=== PATIENT | female | born 1935 | race Two or more races ===

== ENCOUNTER 2019-05-29 11:04 | Emergency (ER) | payer OTHER ==
[~2019-05-29] VITALS: Ht 157.5 cm; Wt 72.6 kg
[2019-05-29 11:22] VITALS: Ht 157.5 cm; Wt 72.6 kg
[2019-05-29 13:21] VITALS: BP 157/63
== END 2019-05-29 13:21 | disposition home or self-care (01) ==
LOC: ED 11:04
DX: S83.92XA Sprain of unspecified site of left knee, initial encounter (principal); I10 Essential (primary) hypertension; E03.9 Hypothyroidism, unspecified; E78.00 Pure hypercholesterolemia, unspecified; W01.0XXA Fall on same level from slipping, tripping and stumbling without subsequent striking against object, initial encounter; Y93.89 Activity, other specified; Y92.89 Other specified places as the place of occurrence of the external cause; Y99.8 Other external cause status